=== PATIENT | female | born 1940 | race Caucasian/White ===

== ENCOUNTER 2018-06-10 09:52 | Emergency (ER) | payer BC ==
[~2018-06-10] VITALS: Ht 160 cm; Wt 83.6 kg
[2018-06-10] MEDS ORDERED: DILT240C3 PO (10:18)
[2018-06-10] MEDS ORDERED: VITA1TAB22 PO (10:18)
[2018-06-10] MEDS ORDERED: APIX5TAB PO (10:18)
[2018-06-10] MEDS ORDERED: CALC-789 PO (10:18)
[2018-06-10] MEDS ORDERED: GLIP2.5ER PO (10:18)
[2018-06-10] MEDS ORDERED: ASCO500 PO (10:18)
[2018-06-10] MEDS ORDERED: UBID10CA6 PO (10:18)
[2018-06-10] MEDS ORDERED: FERR-89 PO (10:18)
[2018-06-10] MEDS ORDERED: LORA2ORA5 PO (10:29)
[2018-06-10] MEDS ORDERED: KDUR10 PO (10:29)
[2018-06-10] MEDS ORDERED: TRAZ-219 PO (10:29)
[2018-06-10] MEDS ORDERED: LEVE500S9 PO (10:29)
[2018-06-10] MEDS ORDERED: HYDR25TA84 PO (10:29)
[2018-06-10] MEDS ORDERED: FURO20 PO (10:29)
[2018-06-10] MEDS ORDERED: SIMV-260 PO (10:29)
[2018-06-10] MEDS ORDERED: SERT100T12 PO (10:29)
[2018-06-10] MEDS ORDERED: CYCL10 PO (10:29)
[2018-06-10] MEDS ORDERED: MULT-1203 PO (10:29)
[2018-06-10] MEDS ORDERED: METO50 PO (10:29)
[2018-06-10] MEDS ORDERED: ACETAMINOPHEN 500 MG TABLET PO ONE (11:30)
[2018-06-10 14:46] VITALS: BP 125/73
== END 2018-06-10 14:47 | disposition home or self-care (01) ==
LOC: EMS 09:54
DX: S63.502A Unspecified sprain of left wrist, initial encounter (principal); S09.90XA Unspecified injury of head, initial encounter; S80.12XA Contusion of left lower leg, initial encounter; I48.91 Unspecified atrial fibrillation; I11.0 Hypertensive heart disease with heart failure; I50.9 Heart failure, unspecified; F31.9 Bipolar disorder, unspecified; E11.9 Type 2 diabetes mellitus without complications; F12.10 Cannabis abuse, uncomplicated; Z79.01 Long term (current) use of anticoagulants; Z79.899 Other long term (current) drug therapy; W19.XXXA Unspecified fall, initial encounter; Y93.89 Activity, other specified; Y92.89 Other specified places as the place of occurrence of the external cause; Y99.8 Other external cause status
CPT/HCPCS: 70450